=== PATIENT | female | born 1985 ===

== ENCOUNTER 2019-04-12 12:09 | Emergency (ER) | payer SELFPAY ==
--- NOTE | 2019-04-12 12:46 | Emergency Department Report ---
Blank Doc - Documentation Documentation: 33-year-old female that presents with vaginal bleeding. Stated is about 8 weeks . This initial assessment/diagnostic orders/clinical plan/treatment(s) is/are subject to change based on patient's health status, clinical progression and re- assessment by fellow clinical providers in the ED. Further treatment and workup at subsequent clinical providers discretion. Patient/guardians urged not to elope from the ED as their condition may be serious if not clinically assessed and managed. Initial orders include: 1- Patient sent to [facility] for further evaluation and treatment 2- labs 3- UA
[2019-04-12 12:48] VITALS: BP 110/55
--- NOTE | 2019-04-12 13:29 | Emergency Department Report ---
ED Female HPI - General Chief complaint: Vaginal Bleeding Stated complaint: 8 WKS BLEEDING/PAIN Time Seen by Provider: 04/12/19 12:45 Source: patient, family Mode of arrival: Ambulatory Limitations: Language Barrier - History of Present Illness Initial comments: 33 yo female . LMP 108/19. States she's 8 weeks . She c/o of vaginal bleeding this morning which resolved on it's own and suprapubic pain. Small amount of blood noted on pad pt brought from home pad. No current vaginal bleeding. She had similar episode 1 week ago she was seen by OB-FREIGHT ADJUSTER and placed on bed-rest. She denies any PMH, no prior surgeries. MD Complaint: vaginal bleeding Radiation: suprapubic, R flank Severity: mild Severity scale (0 -10): 3 Quality: cramping Improves with: none Worsens with: none Are you Now?: Yes Associated Symptoms: vaginal bleeding. denies: vaginal discharge, nausea/vomiting, fever/chills, headaches, loss of appetite, dysuria, hematuria, rash, seizure, shortness of breath, syncope, weakness - Related Data : 1 Para: 0 Previous Rx's Medication Instructions Recorded Last Taken Type cephALEXin [Keflex] 500 mg PO Q12HR 7 Days #14 cap 04/12/19 Unknown Rx Allergies Allergy/AdvReac Type Severity Reaction Status Date / Time No Known Allergies Allergy Unverified 04/12/19 12:15 ED Review of Systems ROS: Stated complaint: 8 WKS BLEEDING/PAIN Other details as noted in HPI Comment: All other systems reviewed and negative Constitutional: no symptoms reported Cardiovascular: denies: chest pain, palpitations, dyspnea on exertion, orthopnea, edema, syncope Gastrointestinal: denies: nausea, vomiting, diarrhea Genitourinary: other (vaginal bleeding "spotting") Skin: rash Neurological: denies: headache ED Past Medical Hx - Past Medical History Previous Medical History?: Yes Hx Hypertension: Yes Hx Arthritis: Yes - Surgical History Past Surgical History?: Yes Additional Surgical History: RT KNEE - Social History Smoking Status: Never Smoker Substance Use Type: None - Medications Home Medications: Home Medications Medication Instructions Recorded Confirmed Last Taken Type cephALEXin [Keflex] 500 mg PO Q12HR 7 Days #14 cap 04/12/19 Unknown Rx ED Physical Exam - General Limitations: Language Barrier General appearance: alert, in no apparent distress - Head Head exam: Present: atraumatic, normal inspection - Eye Eye exam: Present: normal appearance. Absent: scleral icterus, conjunctival injection - ENT ENT exam: Present: mucous membranes moist - Neck Neck exam: Present: full ROM - Respiratory Respiratory exam: Present: normal lung sounds bilaterally. Absent: respiratory distress, wheezes, rales - Cardiovascular Cardiovascular Exam: Present: regular rate, normal heart sounds. Absent: normal rhythm, systolic murmur - GI/Abdominal GI/Abdominal exam: Present: soft, normal bowel sounds. Absent: distended, tenderness, guarding, rebound - Extremities Exam Extremities exam: Present: normal inspection - Back Exam Back exam: Present: normal inspection - Neurological Exam Neurological exam: Present: alert, oriented X3 - Psychiatric Psychiatric exam: Present: normal affect - Skin Skin exam: Present: warm, dry, intact, normal color ED Course Vital Signs 04/12/19 12:45 Temperature 98.1 F Pulse Rate 81 Respiratory 18 Rate Blood Pressure 110/55 [Right] O2 Sat by Pulse 100 Oximetry ED Medical Decision Making - Lab Data Result diagrams: 04/12/19 13:07 - Radiology Data Radiology results: report reviewed US FINDINGS: There is an intrauterine gestational sac with pole, crown-rump length of 20 mm corresponding to an 8 week 4 day gestation. cardiac activity was recorded at 160 bpm. The ovaries are normal. No free fluid collections are seen in the cul-de-sac. IMPRESSION: 1. Viable intrauterine gestation, 8 week 4 day size - Medical Decision Making 33 yo 8 weeks with hx of Vaginal bleeding 1 week ago seen by OB Dr Amador Guerin and placed on bedrest Mild vaginal bleeding today US: 1. Viable intrauterine gestation, 8 week 4 day size Blood type is B+ Urine with elevated wbc: Rx for Keflex given Maintain bedrest and follow up with OB-FREIGHT ADJUSTER Critical Care Time: No Critical care attestation.: If time is entered above; I have spent that time in minutes in the direct care of this critically ill patient, excluding procedure time. ED Disposition Clinical Impression: Vaginal bleeding during UTI (urinary tract infection) Qualifiers: Urinary tract infection type: acute cystitis Hematuria presence: with hematuria Qualified Code(s): N30.01 - Acute cystitis with hematuria Disposition: TO HOME OR SELFCARE Is pt being admited?: No Does the pt Need Aspirin: No Condition: Stable Instructions: Threatened Miscarriage (ED), Urinary Tract Infection in Women (ED) Additional Instructions: Continue bed rest as advised by your OBGYN YOUR ULTRASOUND TODAY SHOWS FINDINGS: 1. Viable intrauterine gestation, 8 week 4 day size Rest stay well hydrated. Return to ER for increasing bleeding and abdominal pain Follow up with your OB-FREIGHT ADJUSTER DR. Amador Guerin as scheduled. Prescriptions: cephALEXin [Keflex] 500 mg PO Q12HR 7 Days #14 cap [facility]: [facility] JAZMYN [Primary Care Provider] - 3-5 Days Time of Disposition: 17:27
[2019-04-12 13:45] LABS: Basophils % (Auto) 0.4 % (0.0-1.8); Eosinophils # (Auto) 0.1 K/mm3 (0.0-0.4); Eosinophils % (Auto) 0.6 % (0.0-4.3); Hematocrit 40.9 % (30.3-42.9); Hemoglobin 13.9 gm/dl (10.1-14.3); Lymphocytes # (Auto) 1.7 K/mm3 (1.2-5.4); Lymphocytes % (Auto) 21.1 % (13.4-35.0); Mean Corpuscular HGB Conc 34 % (30-34); Mean Corpuscular Volume 85 fl (79-97); Monocytes # (Auto) 0.6 K/mm3 (0.0-0.8); Monocytes % (Auto) 6.8 % (0.0-7.3); Platelet Count 322 K/mm3 (140-440); Red Cell Distribution Width 13.2 % (13.2-15.2)
[2019-04-12 13:59] LABS: Bacteria,Urine 1+ /HPF (Negative); Bilirubin,Urine NEG (Negative); Blood,Urine LG (Negative); Color,Urine Amber (Yellow); Mucus,Urine FEW /HPF; Protein,Urine <15 mg/dL mg/dL (Negative); Urobilinogen,Urine < 2.0 mg/dL (<2.0)
--- NOTE | 2019-04-12 17:10 | Ultrasound Report ---
US OB <= 14 weeks fetus INDICATION / CLINICAL INFORMATION: vaginal bleeding 8 wks preg. COMPARISON: None available. FINDINGS: There is an intrauterine gestational sac with pole, crown-rump length of 20 mm corresponding to an 8 week 4 day gestation. cardiac activity was recorded at 160 bpm. The ovaries are normal. No free fluid collections are seen in the cul-de-sac. IMPRESSION: 1. Viable intrauterine gestation, 8 week 4 day size. Signer Name: Axel Robin MD Signed: 04/12/2019 5:05 PM Workstation Name: [id number]
== END 2019-04-12 17:57 | disposition home or self-care (01) ==
LOC: ED 12:09
DX: O20.8 Other hemorrhage in early pregnancy (principal); O23.41 Unspecified infection of urinary tract in pregnancy, first trimester; Z79.899 Other long term (current) drug therapy; Z3A.08 8 weeks gestation of pregnancy
CPT/HCPCS: 36415; 76801; 81001; 84702; 85025; 86900; 86901; 87086

== ENCOUNTER 2019-04-26 15:27 | Emergency (ER) | payer SELFPAY ==
[2019-04-26 16:03] VITALS: BP 107/50
[2019-04-26 18:14] LABS: Basophils % (Auto) 0.3 % (0.0-1.8); Eosinophils # (Auto) 0.1 K/mm3 (0.0-0.4); Eosinophils % (Auto) 0.6 % (0.0-4.3); Hemoglobin 14.1 gm/dl (10.1-14.3); Lymphocytes # (Auto) 2.7 K/mm3 (1.2-5.4); Lymphocytes % (Auto) 29.8 % (13.4-35.0); Mean Corpuscular HGB Conc 34 % (30-34); Mean Corpuscular Volume 86 fl (79-97); Monocytes # (Auto) 0.5 K/mm3 (0.0-0.8); Monocytes % (Auto) 5.3 % (0.0-7.3); Platelet Count 296 K/mm3 (140-440); Red Blood Count 4.78 M/mm3 (3.65-5.03); Red Cell Distribution Width 13.3 % (13.2-15.2)
[2019-04-26] MEDS ORDERED: ACETAMINOPHEN 500 MG TAB PO ONE (18:51)
[2019-04-26 19:40] LABS: BUN/Creatinine Ratio 14; Blood Urea Nitrogen 7 mg/dL (7-17); Calcium 9.7 mg/dL (8.4-10.2)
[2019-04-26 19:41] LABS: Alanine Aminotransferase 10 units/L (7-56); Albumin 4.7 g/dL (3.9-5); Hemolysis Index 10
--- NOTE | 2019-04-26 20:16 | Ultrasound Report ---
US OB transvaginal, US OB <= 14 weeks fetus INDICATION / CLINICAL INFORMATION: Vaginal bleeding. COMPARISON: Ultrasound 04/12/2019. FINDINGS: Transabdominal and transvaginal imaging was performed. Intrauterine gestational sac is seen with pole. [place]-rump length is 2.3 cm (9 weeks, 0 days). Previously, crown-rump length measuring 8 weeks, 4 days. No embryonic cardiac activity was detected. Maternal ovaries are unremarkable. No free fluid is seen. IMPRESSION: 1. No embryonic cardiac activity was detected. The fetus is measuring less than 1 week greater than t he prior exam from 04/12/2019. These findings are concerning for demise. Signer Name: Jose Calixto MD Signed: 04/26/2019 8:12 PM Workstation Name: [id number]
--- NOTE | 2019-04-26 20:16 | Ultrasound Report ---
US OB transvaginal, US OB <= 14 weeks fetus INDICATION / CLINICAL INFORMATION: Vaginal bleeding. COMPARISON: Ultrasound 04/12/2019. FINDINGS: Transabdominal and transvaginal imaging was performed. Intrauterine gestational sac is seen with pole. [place]-rump length is 2.3 cm (9 weeks, 0 days). Previously, crown-rump length measuring 8 weeks, 4 days. No embryonic cardiac activity was detected. Maternal ovaries are unremarkable. No free fluid is seen. IMPRESSION: 1. No embryonic cardiac activity was detected. The fetus is measuring less than 1 week greater than t he prior exam from 04/12/2019. These findings are concerning for demise. Signer Name: Jose Calixto MD Signed: 04/26/2019 8:12 PM Workstation Name: [id number]
--- NOTE | 2019-04-26 20:33 | Emergency Department Report ---
ED Female HPI - General Chief complaint: Vaginal Bleeding Stated complaint: 10 WKS /BLEEDING/PAIN Source: patient Mode of arrival: Ambulatory Limitations: No Limitations - History of Present Illness Initial comments: Patient is a A0 34-year-old female who is approximately 10 weeks gestation who presented to the ED with persistent suprapubic pain with vaginal bleeding for the last 2 weeks, worse in the last 2 days. Patient states that she has an appointment with her EDI COORDINATOR physician in 3 days but because of the severity of the pelvic pain and the heaviness of the bleeding she decided to come to the ED for evaluation. Patient denies nausea, vomiting, diarrhea, dizziness, syncope, cough, change in vision, chest pain, shortness of breath, fever, chills, dysuria, urinary frequency and urgency or vaginal discharge. MD Complaint: vaginal bleeding, pelvic pain -: Gradual, week(s) (2) Location: suprapubic, other (vaginal) Radiation: non-radiating Severity: severe Severity scale (0 -10): 7 Quality: cramping, sharp Consistency: constant Improves with: none Worsens with: none Are you Now?: Yes (10 weeks gestation) Associated Symptoms: denies other symptoms, vaginal bleeding, abdominal pain (suprapubic), loss of appetite. denies: vaginal discharge, nausea/vomiting, fever/chills, headaches, dysuria, hematuria, rash, seizure, shortness of breath, weakness - Related Data Sexually active: Yes : 1 Para: 0 A: 0 Previous Rx's Medication Instructions Recorded Last Taken Type cephALEXin [Keflex] 500 mg PO Q12HR 7 Days #14 cap 04/12/19 Unknown Rx cephALEXin [Keflex] 500 mg PO Q6HR #40 capsule 04/26/19 Unknown Rx Allergies Allergy/AdvReac Type Severity Reaction Status Date / Time No Known Allergies Allergy Unverified 04/12/19 12:15 ED Review of Systems ROS: Stated complaint: 10 WKS /BLEEDING/PAIN Other details as noted in HPI Constitutional: malaise. denies: chills, fever Eyes: denies: eye pain, eye discharge, vision change ENT: denies: ear pain, throat pain Respiratory: denies: cough, shortness of breath, wheezing Cardiovascular: denies: chest pain, palpitations Endocrine: no symptoms reported Gastrointestinal: abdominal pain (suprapubic). denies: nausea, diarrhea Genitourinary: abnormal menses (heavy vaginal bleeding). denies: urgency, dysuria, discharge Musculoskeletal: denies: back pain, joint swelling, arthralgia Skin: denies: rash, lesions Neurological: denies: headache, weakness, paresthesias Psychiatric: denies: anxiety, depression Hematological/Lymphatic: denies: easy bleeding, easy bruising ED Past Medical Hx - Past Medical History Hx Hypertension: Yes Hx Arthritis: Yes - Surgical History Additional Surgical History: RT KNEE - Social History Smoking Status: Never Smoker Substance Use Type: None - Medications Home Medications: Home Medications Medication Instructions Recorded Confirmed Last Taken Type cephALEXin [Keflex] 500 mg PO Q12HR 7 Days #14 cap 04/12/19 Unknown Rx cephALEXin [Keflex] 500 mg PO Q6HR #40 capsule 04/26/19 Unknown Rx ED Physical Exam - General Limitations: No Limitations General appearance: alert, in no apparent distress - Head Head exam: Present: atraumatic, normocephalic, normal inspection - Eye Eye exam: Present: normal appearance, PERRL Pupils: Present: normal accommodation - ENT ENT exam: Present: normal exam, normal orophraynx, mucous membranes moist, TM's normal bilaterally, normal external ear exam - Neck Neck exam: Present: normal inspection, full ROM - Respiratory Respiratory exam: Present: normal lung sounds bilaterally. Absent: respiratory distress, wheezes, rales, rhonchi, chest wall tenderness, accessory muscle use, decreased breath sounds - Cardiovascular Cardiovascular Exam: Present: regular rate, normal rhythm, normal heart sounds. Absent: systolic murmur, diastolic murmur, rubs, gallop - GI/Abdominal GI/Abdominal exam: Present: soft, tenderness (Mildly tender suprapubic area), normal bowel sounds. Absent: guarding, rebound, hyperactive bowel sounds, organomegaly - Bi-manual exam: Present: other (deferred, patient prefers her [facility] Physician with whom she has appointment in 3 days' time) - Extremities Exam Extremities exam: Present: normal inspection, full ROM, normal capillary refill - Back Exam Back exam: Present: normal inspection, full ROM. Absent: muscle spasm, paraspinal tenderness, vertebral tenderness - Neurological Exam Neurological exam: Present: alert, oriented X3, normal gait, reflexes normal - Psychiatric Psychiatric exam: Present: normal affect, normal mood - Skin Skin exam: Present: warm, dry, intact, normal color. Absent: rash ED Course Vital Signs 04/26/19 04/26/19 16:01 19:45 Temperature 98.3 F Pulse Rate 92 H Respiratory 18 16 Rate Blood Pressure 107/50 O2 Sat by Pulse 97 Oximetry ED Medical Decision Making - Lab Data Result diagrams: 04/26/19 18:01 04/26/19 19:09 - Radiology Data Radiology results: report reviewed, image reviewed Findings [facility] [address] [place] [address] Ultrasound Report Signed Patient: REN REEVES MR#: [id number] : 1985 Acct:[id number] Age/Sex: 34 / F ADM Date: 04/26/19 Loc: ED Attending Dr: Ordering Physician: VALDEZ SULLIVAN Date of Service: 04/26/19 Procedure(s): US OB transvaginal Accession Number(s): [id number] cc: VALDEZ SULLIVAN US OB transvaginal, US OB <= 14 weeks fetus INDICATION / CLINICAL INFORMATION: Vaginal bleeding. COMPARISON: Ultrasound 04/12/2019. FINDINGS: Transabdominal and transvaginal imaging was performed. Intrauterine gestational sac is seen with pole. [place]-rump length is 2.3 cm (9 weeks, 0 days). Previously, crown-rump length measuring 8 weeks, 4 days. No embryonic cardiac activity was detected. Maternal ovaries are unremarkable. No free fluid is seen. IMPRESSION: 1. No embryonic cardiac activity was detected. The fetus is measuring less than 1 week greater than the prior exam from 04/12/2019. These findings are concerning for demise. Signer Name: Jose Calixto MD Signed: 04/26/2019 8:12 PM Workstation Name: [id number] Transcribed By: JESUS Dictated By: Jose Calixto MD Electronically Authenticated By: Jose Calixto MD Signed Date/Time: 04/26/192011 DD/ 2 - Medical Decision Making This is a 34-year-old female who is approximately 10 weeks gestation who presented to the ED with complaint of acute onset pelvic pain with persistent vaginal bleeding for the last 2 weeks, worse in the last 2 days. The ED, patient is alert and oriented 3 and is not in distress. Lab test results were reviewed and show mild hyponatremia 136 mmol [place] liter, [place] [id number]. Urinalysis shows significant urinary tract infection. The transvaginal to sound shows intrauterine gestational sac is seen with pole. [place]-rump length is 2.3 cm (9 weeks, 0 days). Previously, crown-rump length measuring 8 weeks, 4 days. No embryonic cardiac activity was detected. These findings are consistent with demise. Patient was treated for pain in the ED and advised to maintain a complete pelvic rest and follow-up with EDI COORDINATOR physician in 24-48 hours for further evaluation. - Differential Diagnosis Threatened miscarriage; Ovarian cyst; UTI; Subchorionic bleeding; fibroids Critical care attestation.: If time is entered above; I have spent that time in minutes in the direct care of this critically ill patient, excluding procedure time. ED Disposition Clinical Impression: Threatened miscarriage, demise due to miscarriage, Acute urinary tract infection, Vaginal bleeding during Disposition: TO HOME OR SELFCARE Is pt being admited?: No Does the pt Need Aspirin: No Condition: Stable Instructions: Threatened Miscarriage (ED), Urinary Tract Infection in Women (ED) Additional Instructions: Los resultados de harkins prueba, incluida la ecografa, muestran que est teniendo un aborto espontneo. Por lo tanto, tome medicamentos para el dolor, Tylenol, segn sea necesario cada 4-6 horas. Mantenga un descanso plvico completo sin levantar objetos o actividad fsica o actividad sexual. Bradley un seguimiento con harkins mdico obstetra / gineclogo Assevedo en 24-48 horas para daisy evaluacin adicional. Regrese al servicio de urgencias de inmediato si los sntomas empeoran. Prescriptions: cephALEXin [Keflex] 500 mg PO Q6HR #40 capsule Referrals: NGUYEN MENA MD [Staff Physician] - 2-3 Days (FOLLOW UP WITH DR. MENA IF YOU ARE UNABLE TO OBTAIN AN APPOINTMENT WITH YOUR OWN [facility] LIFT OPERATOR PHYSICIAN) Time of Disposition: 20:34 Print Language: TAIWANESE
[2019-04-26 22:56] LABS: Bacteria,Urine 1+ /HPF (Negative); Bilirubin,Urine NEG (Negative); Blood,Urine LG (Negative); Color,Urine Yellow (Yellow); Mucus,Urine 3+ /HPF; Urobilinogen,Urine < 2.0 mg/dL (<2.0)
== END 2019-04-27 00:30 | disposition home or self-care (01) ==
LOC: ED 15:27
DX: O36.4XX0 Maternal care for intrauterine death, not applicable or unspecified (principal); O20.0 Threatened abortion; O23.41 Unspecified infection of urinary tract in pregnancy, first trimester; O20.8 Other hemorrhage in early pregnancy; Z79.899 Other long term (current) drug therapy; Z3A.09 9 weeks gestation of pregnancy
CPT/HCPCS: 36415; 76801; 76817; 80053; 81001; 84702; 84703; 85025; 86900; 86901; 87086